=== PATIENT | female | born 1960 | race Caucasian/White ===

== ENCOUNTER → 2023-07-06 08:53 | Outpatient (REF) | payer OTHER, SELFPAY | LOC: RAD 08:53 | PROVIDERS: ATTENDING PHYSICIAN Surgery Vascular Surgery; FAMILY PHYSICIAN Family Medicine | DX: I73.00 Raynaud's syndrome without gangrene (principal) | CPT/HCPCS: 93922; 93925 ==

== ENCOUNTER → 2023-07-21 10:40 | Outpatient (REF) | payer OTHER, SELFPAY | LOC: HWRAD 10:40 | PROVIDERS: ATTENDING PHYSICIAN Surgery Vascular Surgery; FAMILY PHYSICIAN Family Medicine | DX: I75.023 Atheroembolism of bilateral lower extremities (principal); I74.8 Embolism and thrombosis of other arteries | CPT/HCPCS: 71275; 74174; Q9967 ==